=== PATIENT | male | born 1970 | race Caucasian/White ===

== ENCOUNTER 2021-07-22 23:38 | Emergency (ER) | payer OTHER ==
--- NOTE | 2021-07-22 23:47 | ED ---
Recheck HPI - General Chief Complaint: Recheck/Abnormal Lab/Rx Stated Complaint: Covid Test Time Seen by Provider: 07/22/21 23:40 Source: patient Mode of arrival: ambulatory Limitations: no limitations - History of Present Illness Initial Comments: Patient presents to the emergency department today for COVID-19 testing in order to cross border into [place]. Denies any current symptoms or recent exposures. Patient denies need for further medical screening or examination. - Related Data Allergies Allergy/AdvReac Type Severity Reaction Status Date / Time Penicillins Allergy Swelling Verified 07/22/21 23:44 Review of Systems ROS Statement: Those systems with pertinent positive or pertinent negative responses have been documented in the HPI. ROS Other: All systems not noted in ROS Statement are negative. Past Medical History Past Medical History: Hypertension History of Any Multi-Drug Resistant Organisms: None Reported Past Surgical History: No Surgical Hx Reported Past Psychological History: No Psychological Hx Reported Smoking Status: Current every day smoker Past Alcohol Use History: None Reported Past Drug Use History: None Reported General Exam Limitations: no limitations General appearance: alert, in no apparent distress Neurological exam: Present: alert, oriented X3 Course Vital Signs 07/22/21 23:42 Temperature 98 F Pulse Rate 99 Respiratory 20 Rate Blood Pressure 161/103 O2 Sat by Pulse 95 Oximetry Medical Decision Making - Medical Decision Making Patient presented for COVID-19 testing in order to cross border into [place]. Did not have any symptoms. Declined any need for further exam or screening. Test results were negative. Patient was given copy of result and discharged. My attending is Dr. Powell. - Lab Data Lab Results 07/22/21 Range/Units 23:41 Coronavirus (PCR) Not Detected (Not Detectd) Disposition Clinical Impression: Encounter for laboratory testing for COVID-19 virus Disposition: HOME SELF-CARE Condition: Good Instructions (If sedation given, give patient instructions): Coronavirus Disease 2019 (COVID-19) Is patient prescribed a controlled substance at d/c from ED?: No Referrals: None,Stated [Primary Care Provider] - 1-2 days Time of Disposition: 23:47
[2021-07-22 23:57] VITALS: BP 161/103; PULSE 99; RESP 20; TEMP 98
== END 2021-07-23 00:09 | disposition home or self-care (01) ==
LOC: EC 23:38
DX: Z20.822 Contact with and (suspected) exposure to COVID-19 (principal); I10 Essential (primary) hypertension; F17.200 Nicotine dependence, unspecified, uncomplicated; Z88.0 Allergy status to penicillin
CPT/HCPCS: 87635; 99282